=== PATIENT | female | born 1970 | race Caucasian/White ===

== ENCOUNTER → 2016-09-03 | Outpatient (REF) | payer BC, OTHER ==
[~2016-09-03] MED LIST: ATEN25TA PO; COUM7.5T PO; TYLE650T30 PO; birth control pill PO
[2016-09-03 16:39] LABS: ALBUMIN 3.5 GM/DL (3.2-5.2); ALBUMIN/GLOBULIN RATIO 1.09 (1.00-1.93); ALKALINE PHOSPHATASE 176 U/L (45-117); ALT/SGPT 36 U/L (12-78); ANION GAP 11 MEQ/L (8-16); AST/SGOT 20 U/L (15-37); BILIRUBIN,TOTAL 0.3 MG/DL (0.2-1.0); BLOOD UREA NITROGEN 12 MG/DL (7-18); CALCIUM LEVEL 8.5 MG/DL (8.5-10.1); CARBON DIOXIDE LEVEL 21 MEQ/L (21-32); CHLORIDE LEVEL 108 MEQ/L (98-107); CHOLESTEROL LEVEL 221 MG/DL (<200); CREATININE FOR GFR 0.72 MG/DL (0.55-1.02); GLOMERULAR FILTRATION RATE > 60.0 (>58); GLUCOSE, FASTING 145 MG/DL (70-105); SODIUM LEVEL 140 MEQ/L (136-145); TOTAL PROTEIN 6.7 GM/DL (6.4-8.2); TRIGLYCERIDES LEVEL 181 MG/DL (<150)
== END ==
LOC: M SFHCPLAZ 14:35
PROVIDERS: ATTEND Internal Medicine Infectious Disease
DX: B20 Human immunodeficiency virus [HIV] disease (principal); E78.00 Pure hypercholesterolemia, unspecified

== ENCOUNTER → 2016-12-02 | Outpatient (REF) | payer BC, OTHER | LOC: M SFHCWAGY 11:12 | PROVIDERS: ATTEND Nurse Practitioner Women's Health | DX: Z12.4 Encounter for screening for malignant neoplasm of cervix (principal) ==

== ENCOUNTER → 2016-12-02 | Outpatient (CLI) | payer BC, OTHER ==
--- NOTE | 2016-12-02 12:36 | REPMRS ---
Patient History The patient states she had a clinical breast exam in 11/2016. No known family history of cancer. Benign ultrasound-guided FNA biopsy of the left breast, September 27, 2008. Digital Woman Screen Mammo: December 02, 2016 - Exam #: [id number] Bilateral CC and MLO view(s) were taken. Technologist: Radha Moore, Technologist Prior study comparison: April 17, 2015, bilateral digital mammo screening bilat, performed at [facility]. December 13, 2012, digital woman screen mammo performed at [facility]. FINDINGS: There are scattered fibroglandular densities. There is a fairly symmetric fibroglandular pattern in both breasts. There has been no interval development of masses, areas of architectural distortion or clusters of microcalcifications typical of malignancy. ASSESSMENT: BI-RADS/ACR category 2 mammogram. Benign finding(s). Recommendation Routine screening mammogram of both breasts in 1 year (for women over age 40). This mammogram was interpreted with the aid of an FDA-approved computer-aided dectection system. Electronically Signed By: Craig Rose MD 12/02/16 [id number]
== END ==
LOC: M WHC 11:27
PROVIDERS: ATTEND Nurse Practitioner Women's Health
DX: Z12.31 Encounter for screening mammogram for malignant neoplasm of breast (principal); R92.8 Other abnormal and inconclusive findings on diagnostic imaging of breast

== ENCOUNTER → 2017-02-25 | Outpatient (REF) | payer BC, OTHER ==
[2017-02-25 13:40] LABS: ALBUMIN 3.5 GM/DL (3.2-5.2); ALBUMIN/GLOBULIN RATIO 1.09 (1.00-1.93); ALKALINE PHOSPHATASE 161 U/L (45-117); ALT/SGPT 35 U/L (12-78); ANION GAP 7 MEQ/L (8-16); AST/SGOT 19 U/L (15-37); BILIRUBIN,TOTAL 0.2 MG/DL (0.2-1.0); BLOOD UREA NITROGEN 12 MG/DL (7-18); CALCIUM LEVEL 8.9 MG/DL (8.5-10.1); CARBON DIOXIDE LEVEL 27 MEQ/L (21-32); CHLORIDE LEVEL 104 MEQ/L (98-107); CREATININE FOR GFR 0.76 MG/DL (0.55-1.02); GLOMERULAR FILTRATION RATE > 60.0 (>58); GLUCOSE, FASTING 164 MG/DL (70-105); POTASSIUM SERUM 4.6 MEQ/L (3.5-5.1); SODIUM LEVEL 138 MEQ/L (136-145); TOTAL PROTEIN 6.7 GM/DL (6.4-8.2)
[2017-02-26 14:16] LABS: Eosinophils 1 % (Not Estab.); HCT 42.3 % (34.0-46.6); HGB 14.5 g/dL (11.1-15.9); Monocytes 11 % (Not Estab.); Neutrophils 62 % (Not Estab.); WBC 4.5 x10E3/uL (3.4-10.8)
== END ==
LOC: M SFHCPLAZ 10:13
PROVIDERS: ATTEND Internal Medicine Infectious Disease
DX: B20 Human immunodeficiency virus [HIV] disease (principal)

== ENCOUNTER → 2017-06-30 | Outpatient (CLI) | payer BC | LOC: M RAD 14:11 | DX: M25.511 Pain in right shoulder (principal); M50.31 Other cervical disc degeneration, high cervical region | CPT/HCPCS: 72040 ==

== ENCOUNTER → 2017-08-26 | Outpatient (REF) | payer BC, OTHER ==
[2017-08-26 13:58] LABS: ALBUMIN 3.7 GM/DL (3.2-5.2); ALBUMIN/GLOBULIN RATIO 1.06 (1.00-1.93); ALKALINE PHOSPHATASE 148 U/L (45-117); ALT/SGPT 35 U/L (12-78); ANION GAP 11 MEQ/L (8-16); AST/SGOT 18 U/L (7-37); BILIRUBIN,TOTAL 0.4 MG/DL (0.2-1.0); BLOOD UREA NITROGEN 11 MG/DL (7-18); CALCIUM LEVEL 9.1 MG/DL (8.5-10.1); CARBON DIOXIDE LEVEL 25 MEQ/L (21-32); CHLORIDE LEVEL 104 MEQ/L (98-107); CHOLESTEROL LEVEL 234 MG/DL (<200); CHOLESTEROL RISK RATIO 4.333 (<5); CREATININE FOR GFR 0.82 MG/DL (0.55-1.30); GAMMA GLUTAMYLTRANSPEPTIDASE 246 U/L (5-55); GLOMERULAR FILTRATION RATE > 60.0 (>58); GLUCOSE, FASTING 212 MG/DL (70-100); HDL CHOLESTEROL 54 MG/DL (>40); LDL CHOLESTEROL 125.8 MG/DL (<100); NON-HDL-C 180 MG/DL; POTASSIUM SERUM 4.3 MEQ/L (3.5-5.1); SODIUM LEVEL 140 MEQ/L (136-145); TOTAL PROTEIN 7.2 GM/DL (6.4-8.2); TRIGLYCERIDES LEVEL 271 MG/DL (<150)
[2017-08-26 14:47] LABS: ESTIMATED AVERAGE GLUCOSE 229 MG/DL (60-110); HEMOGLOBIN A1c 9.6 %
[2017-08-26 15:52] LABS: APPEARANCE, URINE CLOUDY (CLEAR); BACTERIA, URINE AUTO 1+ (NEGATIVE); BILIRUBIN, URINE AUTO NEGATIVE (NEGATIVE); BLOOD, URINE BLOOD NEGATIVE (NEGATIVE); COLOR, URINE AMBER (YELLOW); GLUCOSE, URINE (UA) AUTO 3+ mg/dL (NEGATIVE); KETONE, URINE AUTO TRACE mg/dL (NEGATIVE); LEUKOCYTE ESTERASE, URINE AUTO TRACE (NEGATIVE); MUCUS, URINE LARGE (NEGATIVE); NITRITE, URINE AUTO NEGATIVE (NEGATIVE); PROTEIN, URINE AUTO 1+ mg/dL (NEGATIVE); RBC, URINE AUTO 1 /HPF (0-3); SPECIFIC GRAVITY URINE AUTO 1.037 (1.002-1.035); SQUAMOUS EPITHELIAL CELL UR AU 15 /HPF (0-6); UROBILINOGEN, URINE AUTO 0.2 mg/dL (0.0-2.0); WBC, URINE AUTO 3 /HPF (0-3); YEAST LIKE CELL URINE AUTO SMALL
[2017-08-26 17:37] LABS: CHLAMYDIA DNA AMPLIFICATION NEGATIVE (NEGATIVE); GC DNA AMPLIFICATION NEGATIVE (NEGATIVE)
[2017-08-27 14:19] LABS: % CD8 Pos Lymph 24.7 % (12.0-35.5); %CD4 Pos Lymphs 36.5 % (30.8-58.5); ABS Lymphs 1.6 x10E3/uL (0.7-3.1); ABS Monocytes 0.4 x10E3/uL (0.1-0.9); ABS Neutophils 3.9 x10E3/uL (1.4-7.0); Abs CD4 Helper 584 /uL (359-1519); Abs CD8 Suppres 395 /uL (109-897); CD4/CD8 Ratio 1.48 (0.92-3.72); Eosinophils 1 % (Not Estab.); HCT 44.3 % (34.0-46.6); HGB 15.6 g/dL (11.1-15.9); Immature Grans 0 % (Not Estab.); Lymphocytes 27 % (Not Estab.); MCH 33.5 pg (26.6-33.0); MCHC 35.2 g/dL (31.5-35.7); MCV 95 fL (79-97); Monocytes 7 % (Not Estab.); Neutrophils 65 % (Not Estab.); Platelets 256 x10E3/uL (150-379); RBC 4.65 x10E6/uL (3.77-5.28); RDW 13.2 % (12.3-15.4); WBC 5.9 x10E3/uL (3.4-10.8)
[2017-08-28 14:09] LABS: QUANTIFERON GOLD TB Negative (Negative); TB Test (QFT) Antigen 0.05 IU/mL (.); TB Test (QFT) Antigen Minus Ni <0.01 IU/mL (.); TB Test (QFT) Mitogen >10.00 IU/mL (.); TB Test (QFT) Nil 0.06 IU/mL (.)
[2017-08-30 14:12] LABS: HIV-1 RNA PCR QUANT 2 LC550285 <20 copies/mL (.)
== END ==
LOC: M SFHCPLAZ 11:52
DX: B20 Human immunodeficiency virus [HIV] disease (principal); E78.00 Pure hypercholesterolemia, unspecified; K76.89 Other specified diseases of liver; E66.01 Morbid (severe) obesity due to excess calories; R30.0 Dysuria
CPT/HCPCS: 82977

== ENCOUNTER → 2017-12-03 | Outpatient (REF) | payer BC | LOC: M SFHCWAGY 11:12 | DX: Z12.4 Encounter for screening for malignant neoplasm of cervix (principal) ==

== ENCOUNTER → 2017-12-03 | Outpatient (CLI) | payer BC, OTHER | LOC: M WHC 11:17 | DX: Z12.31 Encounter for screening mammogram for malignant neoplasm of breast (principal); Z12.4 Encounter for screening for malignant neoplasm of cervix | CPT/HCPCS: G0123 ==

== ENCOUNTER → 2018-03-01 | Outpatient (REF) | payer BC ==
[2018-03-01 22:12] LABS: ALBUMIN 3.7 GM/DL (3.2-5.2); ALBUMIN/GLOBULIN RATIO 1.09 (1.00-1.93); ALKALINE PHOSPHATASE 135 U/L (45-117); ALT/SGPT 33 U/L (12-78); ANION GAP 9 MEQ/L (8-16); AST/SGOT 17 U/L (7-37); BILIRUBIN,TOTAL 0.4 MG/DL (0.2-1.0); BLOOD UREA NITROGEN 13 MG/DL (7-18); CALCIUM LEVEL 8.8 MG/DL (8.5-10.1); CARBON DIOXIDE LEVEL 26 MEQ/L (21-32); CHLORIDE LEVEL 102 MEQ/L (98-107); CREATININE FOR GFR 0.78 MG/DL (0.55-1.30); FERRITIN 65 NG/ML (8-252); GAMMA GLUTAMYLTRANSPEPTIDASE 126 U/L (5-55); GLOMERULAR FILTRATION RATE > 60.0 (>58); GLUCOSE, FASTING 157 MG/DL (70-100); IRON (FE) 101 UG/DL (50-170); POTASSIUM SERUM 4.3 MEQ/L (3.5-5.1); SODIUM LEVEL 137 MEQ/L (136-145); TOTAL IRON BINDING CAPACITY 306 UG/DL (250-450); TOTAL PROTEIN 7.1 GM/DL (6.4-8.2)
[2018-03-01 22:21] LABS: MALB URINE SIEMENS 9.8 MG/L
[2018-03-01 22:27] LABS: MAU/CREAT RATIO 6.3 MCG/MG (0.0-30.0)
[2018-03-01 23:34] LABS: ESTIMATED AVERAGE GLUCOSE 192 MG/DL (60-110); HEMOGLOBIN A1c 8.3 %
[2018-03-04 00:07] LABS: % CD8 Pos Lymph 24.1 % (12.0-35.5); %CD4 Pos Lymphs 37.1 % (30.8-58.5); ABS Eosinophils 0.1 x10E3/uL (0.0-0.4); ABS Lymphs 1.3 x10E3/uL (0.7-3.1); ABS Monocytes 0.4 x10E3/uL (0.1-0.9); ABS Neutophils 3.2 x10E3/uL (1.4-7.0); ANA (HEP2) Negative (.); ANTI-MITOCHONDRIAL ANTIBODY 2.6 Units (0.0-20.0); ANTI-SMOOTH MUSCLE ANTIBODY 5 Units (0-19); Abs CD4 Helper 482 /uL (359-1519); Abs CD8 Suppres 313 /uL (109-897); CD4/CD8 Ratio 1.54 (0.92-3.72); CERULOPLASMIN 35.1 mg/dL (19.0-39.0); Eosinophils 1 % (Not Estab.); HCT 41.1 % (34.0-46.6); HIV-1 RNA PCR QUANT 2 LC550285 <20 copies/mL (.); Immature Grans 0 % (Not Estab.); Lymphocytes 25 % (Not Estab.); MCH 32.4 pg (26.6-33.0); MCHC 34.1 g/dL (31.5-35.7); MCV 95 fL (79-97); Monocytes 8 % (Not Estab.); Neutrophils 66 % (Not Estab.); Platelets 236 x10E3/uL (150-379); RBC 4.32 x10E6/uL (3.77-5.28); RDW 12.9 % (12.3-15.4); TISSUE TRANSGLUTAMINASE IgG <2 U/mL (0-5); UNITSIGA FOR GLIADIN IGA 7 units (0-19); UNITSIGG FOR GLIADIN IGG 6 units (0-19)
== END ==
LOC: M SFHCPLAZ 11:33
DX: B20 Human immunodeficiency virus [HIV] disease (principal); K76.89 Other specified diseases of liver; E11.9 Type 2 diabetes mellitus without complications
CPT/HCPCS: 82977

== ENCOUNTER → 2018-03-23 | Outpatient (CLI) | payer BC | LOC: M RAD 09:08 | DX: K76.0 Fatty (change of) liver, not elsewhere classified (principal) | CPT/HCPCS: 76705 ==

== ENCOUNTER → 2018-06-06 | Outpatient (REF) | payer BC ==
[2018-06-06 13:32] LABS: AMORPHOUS SEDIMENT MODERATE (NEGATIVE); APPEARANCE, URINE HAZY (CLEAR); BACTERIA, URINE AUTO NEGATIVE (NEGATIVE); BILIRUBIN, URINE AUTO NEGATIVE (NEGATIVE); BLOOD, URINE BLOOD NEGATIVE (NEGATIVE); COLOR, URINE YELLOW (YELLOW); GLUCOSE, URINE (UA) AUTO NEGATIVE (NEGATIVE); KETONE, URINE AUTO NEGATIVE (NEGATIVE); LEUKOCYTE ESTERASE, URINE AUTO NEGATIVE (NEGATIVE); MUCUS, URINE MODERATE (NEGATIVE); NITRITE, URINE AUTO NEGATIVE (NEGATIVE); PROTEIN, URINE AUTO NEGATIVE (NEGATIVE); RBC, URINE AUTO 1 /HPF (0-3); SPECIFIC GRAVITY URINE AUTO 1.023 (1.002-1.035); SQUAMOUS EPITHELIAL CELL UR AU 2 /HPF (0-6); UROBILINOGEN, URINE AUTO 0.2 mg/dL (0.0-2.0); WBC, URINE AUTO 1 /HPF (0-3)
[2018-06-06 13:40] LABS: ALBUMIN 3.8 GM/DL (3.2-5.2); ALT/SGPT 24 U/L (12-78); BILIRUBIN,TOTAL 0.5 MG/DL (0.2-1.0); BLOOD UREA NITROGEN 10 MG/DL (7-18); CALCIUM LEVEL 9.2 MG/DL (8.5-10.1); CARBON DIOXIDE LEVEL 23 MEQ/L (21-32); CHLORIDE LEVEL 103 MEQ/L (98-107); CREATININE FOR GFR 0.78 MG/DL (0.55-1.30); GLOMERULAR FILTRATION RATE > 60.0 (>58); GLUCOSE, FASTING 144 MG/DL (70-100); HEMOGLOBIN A1c 8.2 %; POTASSIUM SERUM 4.5 MEQ/L (3.5-5.1); SODIUM LEVEL 137 MEQ/L (136-145); TOTAL PROTEIN 7.1 GM/DL (6.4-8.2)
[2018-06-06 14:11] LABS: MALB URINE SIEMENS 24.9 MG/L; MAU/CREAT RATIO 11.3 MCG/MG (0.0-30.0)
[2018-06-06 15:22] LABS: CHLAMYDIA DNA AMPLIFICATION NEGATIVE (NEGATIVE); GC DNA AMPLIFICATION NEGATIVE (NEGATIVE)
[2018-06-08 14:53] LABS: % CD8 Pos Lymph 22.7 % (12.0-35.5); %CD4 Pos Lymphs 35.6 % (30.8-58.5); ABS Eosinophils 0.1 x10E3/uL (0.0-0.4); ABS Lymphs 1.4 x10E3/uL (0.7-3.1); ABS Monocytes 0.4 x10E3/uL (0.1-0.9); ABS Neutophils 3.3 x10E3/uL (1.4-7.0); Abs CD4 Helper 498 /uL (359-1519); Abs CD8 Suppres 318 /uL (109-897); CD4/CD8 Ratio 1.57 (0.92-3.72); Eosinophils 1 % (Not Estab.); HCT 41.5 % (34.0-46.6); HGB 14.6 g/dL (11.1-15.9); Immature Grans 1 % (Not Estab.); Lymphocytes 27 % (Not Estab.); MCH 33.7 pg (26.6-33.0); MCHC 35.2 g/dL (31.5-35.7); MCV 96 fL (79-97); Monocytes 8 % (Not Estab.); Neutrophils 63 % (Not Estab.); Platelets 280 x10E3/uL (150-379); RBC 4.33 x10E6/uL (3.77-5.28); RDW 13.1 % (12.3-15.4); WBC 5.2 x10E3/uL (3.4-10.8)
[2018-06-09 00:09] LABS: HIV-1 RNA PCR QUANT 2 LC550285 <20 copies/mL (.)
== END ==
LOC: M SFHCPLAZ 11:27
PROVIDERS: ATTEND Internal Medicine Infectious Disease
DX: B20 Human immunodeficiency virus [HIV] disease (principal); E11.9 Type 2 diabetes mellitus without complications

== ENCOUNTER → 2018-10-06 | Outpatient (REF) | payer BC ==
[2018-10-06 16:06] LABS: ALBUMIN 3.7 GM/DL (3.2-5.2); ALT/SGPT 31 U/L (12-78); BILIRUBIN,TOTAL 0.2 MG/DL (0.2-1.0); BLOOD UREA NITROGEN 9 MG/DL (7-18); CALCIUM LEVEL 9.2 MG/DL (8.5-10.1); CARBON DIOXIDE LEVEL 28 MEQ/L (21-32); CHLORIDE LEVEL 104 MEQ/L (98-107); CREATININE FOR GFR 0.78 MG/DL (0.55-1.30); GLOMERULAR FILTRATION RATE > 60.0 (>58); GLUCOSE, FASTING 154 MG/DL (70-100); POTASSIUM SERUM 4.2 MEQ/L (3.5-5.1); SODIUM LEVEL 138 MEQ/L (136-145); TOTAL PROTEIN 7.3 GM/DL (6.4-8.2)
[2018-10-06 16:51] LABS: HEMOGLOBIN A1c 7.1 %
[2018-10-11 00:07] LABS: % CD8 Pos Lymph 25.7 % (12.0-35.5); %CD4 Pos Lymphs 38.5 % (30.8-58.5); ABS Monocytes 0.4 x10E3/uL (0.1-0.9); Abs CD4 Helper 770 /uL (359-1519); Abs CD8 Suppres 514 /uL (109-897); Eosinophils 1 % (Not Estab.); HCT 40.7 % (34.0-46.6); HGB 13.6 g/dL (11.1-15.9); HIV-1 RNA PCR QUANT 2 LC550285 <20 copies/mL (.); Immature Grans 0 % (Not Estab.); Lymphocytes 31 % (Not Estab.); MCH 33.6 pg (26.6-33.0); MCHC 33.4 g/dL (31.5-35.7); MCV 101 fL (79-97); Monocytes 6 % (Not Estab.); Neutrophils 62 % (Not Estab.); Platelets 250 x10E3/uL (150-450); RBC 4.05 x10E6/uL (3.77-5.28); RDW 13.6 % (12.3-15.4); WBC 6.5 x10E3/uL (3.4-10.8)
== END ==
LOC: M SFHCPLAZ 14:07
PROVIDERS: ATTEND Internal Medicine Infectious Disease
DX: B20 Human immunodeficiency virus [HIV] disease (principal); K21.9 Gastro-esophageal reflux disease without esophagitis; E11.9 Type 2 diabetes mellitus without complications

== ENCOUNTER → 2018-11-02 | Outpatient (CLI) | payer BC ==
--- NOTE | 2018-11-03 20:40 | SLEEPHOME ---
DATE OF PROCEDURE: 11/02/2018 ORDERED BY: Dr. Evans Diagnostic home sleep testing was performed due to concern for the obstructive sleep apnea syndrome in this patient with a history of fatigue and sleep fragmentation. For testing, a nocturnal T3 respiratory monitoring device was used. Continuous record was made of pulse, oxygen saturation, airflow, chest, abdominal strain and body position. 9 hours and 59 minutes of data were reviewed. There were 7 hours and 58 minutes marked as time in bed. During the interval marked time in bed there were 41 respiratory events identified of 10 seconds in duration or greater for a respiratory event index of 5.1. The events were primarily obstructive. Baseline pulse rate 70 beats per minute, pulse rate ranged 51 to 116. Baseline saturation was 94%. Saturations fell to 86%. Testing was performed in both the supine and nonsupine positions. IMPRESSION Abnormal home sleep testing with repetitive respiratory events and oxygen desaturations to 86% with a respiratory event index of 5.1 is consistent with the obstructive sleep apnea syndrome. RECOMMENDATIONS The respiratory events seen were associated with the supine posture and sleep position retraining for avoidance of the supine posture would seem appropriate. Should sleep symptoms persists referral for formal sleep evaluation could be considered.
== END ==
LOC: M SLEEP HO 12:00
PROVIDERS: ATTEND Internal Medicine Infectious Disease
DX: R53.83 Other fatigue (principal); E66.9 Obesity, unspecified

== ENCOUNTER → 2018-11-30 | Outpatient (REF) | payer BC | LOC: M SFHCWAGY 09:35 | PROVIDERS: ATTEND Nurse Practitioner Women's Health | DX: Z12.4 Encounter for screening for malignant neoplasm of cervix (principal) ==

== ENCOUNTER → 2018-12-07 | Outpatient (CLI) | payer BC ==
--- NOTE | 2018-12-07 09:04 | REP ---
Diagnostic left breast. Spot magnification views: The study is correlated with the recent screening bilateral mammogram dated 11/30/2018. The micro calcific cluster identified in the left breast laterally on the screening mammogram persists on the spot magnification views and is identified to better advantage on the spot magnification views. This finding is considered suspicious. Impression: BIRADS category 4, suspicious finding, micro calcific cluster in the left breast. Stereotactic guided core needle biopsy is recommended. Patient letter [id number]. Electronically Signed by Craig Rob MD 12/07/2018 08:55 A
== END ==
LOC: M RAD 08:32
PROVIDERS: ATTEND Nurse Practitioner Women's Health
DX: R92.0 Mammographic microcalcification found on diagnostic imaging of breast (principal)

== ENCOUNTER → 2019-01-31 | Outpatient (REF) | payer BC ==
[2019-01-31 16:52] LABS: ALBUMIN 3.8 GM/DL (3.2-5.2); ALT/SGPT 41 U/L (12-78); BILIRUBIN,TOTAL 0.3 MG/DL (0.2-1.0); BLOOD UREA NITROGEN 13 MG/DL (7-18); CALCIUM LEVEL 9.1 MG/DL (8.5-10.1); CARBON DIOXIDE LEVEL 25 MEQ/L (21-32); CHLORIDE LEVEL 106 MEQ/L (98-107); CHOLESTEROL LEVEL 196 MG/DL (<200); CREATININE FOR GFR 0.86 MG/DL (0.55-1.30); GLOMERULAR FILTRATION RATE > 60.0 (>58); GLUCOSE, FASTING 175 MG/DL (70-100); HDL CHOLESTEROL 47 MG/DL (>40); LDL CHOLESTEROL 91 MG/DL (<100); NON-HDL-C 149 MG/DL; POTASSIUM SERUM 4.1 MEQ/L (3.5-5.1); SODIUM LEVEL 140 MEQ/L (136-145); TOTAL PROTEIN 6.9 GM/DL (6.4-8.2); TRIGLYCERIDES LEVEL 288 MG/DL (<150)
[2019-01-31 17:01] LABS: HEMOGLOBIN A1c 7.3 %
[2019-02-04 00:06] LABS: % CD8 Pos Lymph 23.7 % (12.0-35.5); %CD4 Pos Lymphs 43.2 % (30.8-58.5); ABS Lymphs 1.5 x10E3/uL (0.7-3.1); ABS Monocytes 0.4 x10E3/uL (0.1-0.9); ABS Neutophils 3.7 x10E3/uL (1.4-7.0); Abs CD4 Helper 648 /uL (359-1519); Abs CD8 Suppres 356 /uL (109-897); CD4/CD8 Ratio 1.82 (0.92-3.72); Eosinophils 1 % (Not Estab.); HCT 40.8 % (34.0-46.6); HGB 13.5 g/dL (11.1-15.9); HIV-1 RNA PCR QUANT 2 LC550285 <20 copies/mL (.); Immature Grans 0 % (Not Estab.); Lymphocytes 26 % (Not Estab.); MCH 33.8 pg (26.6-33.0); MCHC 33.1 g/dL (31.5-35.7); MCV 102 fL (79-97); Monocytes 7 % (Not Estab.); Neutrophils 66 % (Not Estab.); Platelets 348 x10E3/uL (150-450); RBC 3.99 x10E6/uL (3.77-5.28); RDW 12.9 % (12.3-15.4); WBC 5.6 x10E3/uL (3.4-10.8)
== END ==
LOC: M SFHCPLAZ 13:10
PROVIDERS: ATTEND Internal Medicine Infectious Disease
DX: B20 Human immunodeficiency virus [HIV] disease (principal); K76.89 Other specified diseases of liver; E78.00 Pure hypercholesterolemia, unspecified; E11.9 Type 2 diabetes mellitus without complications

== ENCOUNTER → 2019-05-29 | Outpatient (REF) | payer BC ==
[2019-05-29 15:33] LABS: APPEARANCE, URINE CLEAR (CLEAR); BACTERIA, URINE AUTO NEGATIVE (NEGATIVE); BILIRUBIN, URINE AUTO NEGATIVE (NEGATIVE); BLOOD, URINE BLOOD NEGATIVE (NEGATIVE); COLOR, URINE YELLOW (YELLOW); GLUCOSE, URINE (UA) AUTO NEGATIVE (NEGATIVE); KETONE, URINE AUTO TRACE mg/dL (NEGATIVE); LEUKOCYTE ESTERASE, URINE AUTO NEGATIVE (NEGATIVE); MUCUS, URINE SMALL (NEGATIVE); NITRITE, URINE AUTO NEGATIVE (NEGATIVE); PROTEIN, URINE AUTO NEGATIVE (NEGATIVE); RBC, URINE AUTO 2 /HPF (0-3); SPECIFIC GRAVITY URINE AUTO 1.021 (1.002-1.035); SQUAMOUS EPITHELIAL CELL UR AU 3 /HPF (0-6); UROBILINOGEN, URINE AUTO 0.2 mg/dL (0.0-2.0); WBC, URINE AUTO 1 /HPF (0-3)
[2019-05-29 15:46] LABS: ALBUMIN 3.8 GM/DL (3.2-5.2); ALT/SGPT 39 U/L (12-78); BILIRUBIN,TOTAL 0.4 MG/DL (0.2-1.0); BLOOD UREA NITROGEN 15 MG/DL (7-18); CARBON DIOXIDE LEVEL 28 MEQ/L (21-32); CHLORIDE LEVEL 105 MEQ/L (98-107); CHOLESTEROL LEVEL 171 MG/DL (<200); CHOLESTEROL RISK RATIO 4.275 (<5); CREATININE FOR GFR 0.98 MG/DL (0.55-1.30); FREE T4 1.05 NG/DL (0.76-1.46); GLOMERULAR FILTRATION RATE > 60.0 (>58); GLUCOSE, FASTING 112 MG/DL (70-100); HDL CHOLESTEROL 40 MG/DL (>40); LDL CHOLESTEROL 107 MG/DL (<100); NON-HDL-C 131 MG/DL; POTASSIUM SERUM 4.6 MEQ/L (3.5-5.1); SODIUM LEVEL 140 MEQ/L (136-145); TOTAL PROTEIN 6.8 GM/DL (6.4-8.2); TRIGLYCERIDES LEVEL 120 MG/DL (<150)
[2019-05-29 15:50] LABS: HEMOGLOBIN A1c 8.4 %
[2019-05-29 16:04] LABS: MALB URINE SIEMENS 49.5 MG/L; MAU/CREAT RATIO 32.1 MCG/MG (0.0-30.0)
[2019-05-29 17:35] LABS: CHLAMYDIA DNA AMPLIFICATION NEGATIVE (NEGATIVE); GC DNA AMPLIFICATION NEGATIVE (NEGATIVE)
== END ==
LOC: M SFHCPLAZ 13:21
PROVIDERS: ATTEND Internal Medicine Infectious Disease
DX: B20 Human immunodeficiency virus [HIV] disease (principal); E78.00 Pure hypercholesterolemia, unspecified; E11.9 Type 2 diabetes mellitus without complications; K76.89 Other specified diseases of liver; K59.01 Slow transit constipation

== ENCOUNTER 2019-07-24 06:55 | Day surgery (SDC) | payer BC ==
[~2019-07-24] VITALS: Ht 160 cm; Wt 95.6 kg
[~2019-07-24 06:55] MED LIST changes: +BIKT1TAB PO; +CYCL10TA PO; +GABA-843 PO; +IBUP1TAB6 PO; +JANU50TA8 PO; +LIPI20TA PO; +LOSA50TA88 PO; +NS 1,000 ML IV ONE; +PANT40TA3 PO; +PROAAER10 INH; +SING10TA32 PO
[2019-07-24] MEDS ORDERED: propofoL 200 MG/20 ML VIAL As Ordered ONE ×2 (08:01→08:33)
[2019-07-24 08:40] VITALS: BP 158/76
--- NOTE | 2019-07-24 09:14 | ROOR ---
Patient Name: Mindy Lou Procedure Date: 07/24/2019 8:00 AM Date of : 1970 Age: 49 Room: [facility] Gender: Female Note Status: Finalized Procedure: Colonoscopy Indications: Screening for colorectal malignant neoplasm, Incidental - Change in bowel habits, Incidental - Constipation Providers: Braeden Slaughter MD Referring MD: Javon MOSCOSO MD. Requesting Provider: Medicines: Monitored Anesthesia Care Complications: No immediate complications. Procedure: Pre-Anesthesia Assessment: - Prior to the procedure, a History and Physical was performed, and patient medications and allergies were reviewed. The patient is competent. The risks and benefits of the procedure and the sedation options and risks were discussed with the patient. All questions were answered and informed consent was obtained. Patient identification and proposed procedure were verified by the physician, the nurse and the anesthesiologist in the procedure room. Mental Status Examination: alert and oriented. Airway Examination: normal oropharyngeal airway and neck mobility. Respiratory Examination: clear to auscultation. CV Examination: normal. Prophylactic Antibiotics: The patient does not require prophylactic antibiotics. Prior Anticoagulants: The patient has taken no previous anticoagulant or antiplatelet agents. ASA Grade Assessment: II - A patient with mild systemic disease. After reviewing the risks and benefits, the patient was deemed in satisfactory condition to undergo the procedure. The anesthesia plan was to use monitored anesthesia care (MAC). Immediately prior to administration of medications, the patient was re-assessed for adequacy to receive sedatives. The heart rate, respiratory rate, oxygen saturations, blood pressure, adequacy of pulmonary ventilation, and response to care were monitored throughout the procedure. The physical status of the patient was re-assessed after the procedure. The Colonoscope was introduced through the anus and advanced to the terminal ileum, with identification of the appendiceal orifice and IC valve. The colonoscopy was performed without difficulty. The patient tolerated the procedure well. The quality of the bowel preparation was good. The terminal ileum, ileocecal valve, appendiceal orifice, and rectum were photographed. Scope insertion time was 3 minutes. Scope withdrawal time was 9 minutes. The total duration of the procedure was 14 minutes. Findings: The perianal and digital rectal examinations were normal. The terminal ileum appeared normal. Normal mucosa was found in the entire colon. Non-bleeding external and internal hemorrhoids were found during retroflexion. The hemorrhoids were medium-sized. Impression: - The examined portion of the ileum was normal. - Normal mucosa in the entire examined colon. - Non-bleeding external and internal hemorrhoids. - No specimens collected. Recommendation: - Patient has a contact number available for emergencies. The signs and symptoms of potential delayed complications were discussed with the patient. Return to normal activities tomorrow. Written discharge instructions were provided to the patient. - High fiber diet. - Continue present medications. - Use fiber, for example Citrucel, Fibercon, Konsyl or Metamucil. - Repeat colonoscopy in 10 years for screening purposes. - Return to primary care physician. Braeden Slaughter MD Braeden Slaughter MD 07/24/2019 9:14:21 AM Electronically signed by Braeden Slaughter MD Number of Addenda: 0 Note Initiated On: 07/24/2019 8:00 AM Estimated Blood Loss: Estimated blood loss was minimal.
== END 2019-07-24 09:25 | disposition home or self-care (01) ==
LOC: M OPP 06:55
PROVIDERS: ATTEND Internal Medicine Gastroenterology
DX: Z12.11 Encounter for screening for malignant neoplasm of colon (principal); K64.8 Other hemorrhoids; K59.00 Constipation, unspecified; B20 Human immunodeficiency virus [HIV] disease; E11.9 Type 2 diabetes mellitus without complications; G57.30 Lesion of lateral popliteal nerve, unspecified lower limb; Z79.899 Other long term (current) drug therapy

== ENCOUNTER → 2019-09-18 | Outpatient (REF) | payer BC ==
[~2019-09-18] MED LIST changes: +CYCL-707 PO; -CYCL10TA PO; -NS 1,000 ML IV ONE
[2019-09-18 15:38] LABS: HEMOGLOBIN A1c 7.4 %
[2019-09-18 15:48] LABS: CREATININE, URINE 79.3 MG/DL; MALB URINE SIEMENS 6.4 MG/L
== END ==
LOC: M SFHCPLAZ 13:20
PROVIDERS: ATTEND Internal Medicine Infectious Disease
DX: E11.9 Type 2 diabetes mellitus without complications (principal)

== ENCOUNTER → 2019-12-07 | Outpatient (REF) | payer BC ==
[~2019-12-07] MED LIST changes: +PANT40TA29 PO; -PANT40TA3 PO
== END ==
LOC: M SFHCWAGY 08:44
PROVIDERS: ATTEND Nurse Practitioner Women's Health
DX: Z12.4 Encounter for screening for malignant neoplasm of cervix (principal)

== ENCOUNTER → 2019-12-19 | Outpatient (REF) | payer BC ==
[2020-01-29 08:26] LABS: Abs CD4 Helper See Separate Report; HIV-1 RNA PCR QUANT 2 LC550285 SEE SEPARATE REPORT (NORMAL)
[2020-02-02 11:20] LABS: HEMOGLOBIN A1c 7.2 %
[2020-02-02 11:21] LABS: ALBUMIN 3.8 GM/DL (3.2-5.2); ALT/SGPT 37 U/L (12-78); BILIRUBIN,TOTAL 0.3 MG/DL (0.2-1.0); BLOOD UREA NITROGEN 18 MG/DL (7-18); CALCIUM LEVEL 8.5 MG/DL (8.5-10.1); CARBON DIOXIDE LEVEL 25 MEQ/L (21-32); CHLORIDE LEVEL 109 MEQ/L (98-107); CHOLESTEROL LEVEL 191 MG/DL (<200); CHOLESTEROL RISK RATIO 4.152 (<5); CREATININE FOR GFR 0.91 MG/DL (0.55-1.30); GLOMERULAR FILTRATION RATE > 60.0 (>58); GLUCOSE, FASTING 174 MG/DL (70-100); HDL CHOLESTEROL 46 MG/DL (>40); LDL CHOLESTEROL 115 MG/DL (<100); NON-HDL-C 145 MG/DL; POTASSIUM SERUM 4.6 MEQ/L (3.5-5.1); SODIUM LEVEL 140 MEQ/L (136-145); TOTAL PROTEIN 6.9 GM/DL (6.4-8.2); TRIGLYCERIDES LEVEL 150 MG/DL (<150)
== END ==
LOC: M SFHCPLAZ 10:35
PROVIDERS: ATTEND Internal Medicine Infectious Disease
DX: B20 Human immunodeficiency virus [HIV] disease (principal); E11.9 Type 2 diabetes mellitus without complications; M50.30 Other cervical disc degeneration, unspecified cervical region

== ENCOUNTER → 2020-01-23 | Outpatient (CLI) | payer BC ==
--- NOTE | 2020-01-29 06:33 | SLEEPCENT ---
DATE: 01/23/2020 STUDY: Nocturnal polysomnography. ORDERING PROVIDER: MELINDA Peters. FINDINGS: Nocturnal polysomnography was performed for evaluation of sleep physiology in this patient with a history of extensive somnolence. Eight hours and three minutes of data were reviewed. There were 381 minutes of sleep identified. Sleep latency was prolonged at 84 minutes. REM latency was normal at 61 minutes. Sleep architecture was fair with four REM cycles. Overall sleep efficiency was 80%. The electrocardiogram showed a sinus rhythm with an average heart rate of 60 beats per minute. Unifocal ventricular ectopic beats were identified. EEG showed normal waveforms for wake and sleep. There were 57 respiratory events identified of 10 seconds in duration or greater for an apnea/hypopnea index of 9. The events were primarily obstructive, not exclusive to sleep stage or body posture. Arousals from respiratory events were 1.9 times per hour and oxygen desaturations were seen below 90%. IMPRESSION: Obstructive sleep apnea syndrome (G47.33); apnea/hypopnea index of 9.0. RECOMMENDATION: The patient should be encouraged to return to [facility] for [facility]. In the interim, alcohol and sedative avoidance should be practiced and caution exercised during the operation of motor vehicles. DOMINGA
== END ==
LOC: M SLEEP 20:00
PROVIDERS: ATTEND Nurse Practitioner Family
DX: G47.33 Obstructive sleep apnea (adult) (pediatric) (principal)

== ENCOUNTER → 2020-04-11 | Outpatient (REF) | payer BC ==
[2020-04-11 18:54] LABS: ALBUMIN 3.7 GM/DL (3.2-5.2); ALT/SGPT 31 U/L (12-78); BILIRUBIN,TOTAL 0.2 MG/DL (0.2-1.0); BLOOD UREA NITROGEN 14 MG/DL (7-18); CARBON DIOXIDE LEVEL 24 MEQ/L (21-32); CHLORIDE LEVEL 110 MEQ/L (98-107); CREATININE FOR GFR 0.84 MG/DL (0.55-1.30); GLOMERULAR FILTRATION RATE > 60.0 (>58); GLUCOSE, FASTING 154 MG/DL (70-100); POTASSIUM SERUM 4.8 MEQ/L (3.5-5.1); SODIUM LEVEL 139 MEQ/L (136-145); TOTAL PROTEIN 6.8 GM/DL (6.4-8.2)
[2020-04-11 20:47] LABS: HEMOGLOBIN A1c 7.2 %
[2020-04-14 11:08] LABS: % CD8 Pos Lymph 26.3 % (12.0-35.5); ABS Lymphs 1.4 x10E3/uL (0.7-3.1); ABS Monocytes 0.4 x10E3/uL (0.1-0.9); ABS Neutophils 5.3 x10E3/uL (1.4-7.0); Abs CD4 Helper 518 /uL (359-1519); Abs CD8 Suppres 368 /uL (109-897); CD4/CD8 Ratio 1.41 (0.92-3.72); Eosinophils 1 % (Not Estab.); HCT 40.6 % (34.0-46.6); HIV-1 RNA PCR QUANT 2 LC550285 <20 copies/mL (.); Immature Grans 0 % (Not Estab.); Lymphocytes 19 % (Not Estab.); MCH 34.1 pg (26.6-33.0); MCHC 34.5 g/dL (31.5-35.7); MCV 99 fL (79-97); Monocytes 6 % (Not Estab.); Neutrophils 74 % (Not Estab.); Platelets 296 x10E3/uL (150-450); RDW 11.6 % (11.7-15.4); WBC 7.1 x10E3/uL (3.4-10.8)
== END ==
LOC: M SFHCPLAZ 12:04
PROVIDERS: ATTEND Internal Medicine Infectious Disease
DX: B20 Human immunodeficiency virus [HIV] disease (principal); E11.9 Type 2 diabetes mellitus without complications

== ENCOUNTER → 2020-07-18 | Outpatient (CLI) | payer BC ==
[~2020-07-18] MED LIST changes: +GABA-282 PO; -GABA-843 PO
--- NOTE | 2020-07-18 10:15 | REP ---
INDICATION: RENAL ARTERY STENOSIS. COMPARISON: None. TECHNIQUE: Real-time sonographic evaluation of the kidneys is performed. Duplex Doppler evaluation of renal arteries performed bilaterally. FINDINGS: Renal cortical echogenicity pattern is normal bilaterally and contours are smooth. There is no evidence of hydronephrosis, cyst, mass, or calculus in either kidney. The right kidney measures 10.3 x 5.2 x 4.3 cm. Left renal dimensions are 9.2 x 4.8 x 4.7 cm. The urinary bladder is unremarkable. The peak systolic velocity of the abdominal aorta is 92 centimeters/second. Cyst The peak systolic velocity of the main right renal artery is 149 centimeter/second. Renal to aortic ratio is 1.62. Resistive indices right kidney range between 0.73 and 0.78. Acceleration times range between 0.032 and 0.038. The peak systolic velocity of the main left renal artery is 132 centimeter/seconds. Renal to aortic ratio is 1.43. Resistive indices left kidney range between 0.67 and 0.74. Acceleration times range between 0.040 and 0.042. IMPRESSION: Negative renal ultrasound. No compelling duplex Doppler sonographic evidence of significant renal artery stenosis bilaterally. <Electronically signed by Craig Rose > 07/18/20 [id number]
== END ==
LOC: M RAD 08:49
PROVIDERS: ATTEND Nurse Practitioner Family
DX: I70.1 Atherosclerosis of renal artery (principal)

== ENCOUNTER → 2020-09-03 | Outpatient (CLI) | payer BC ==
--- NOTE | 2020-09-03 16:25 | REP ---
INDICATION: PAIN COMPARISON: None. TECHNIQUE: Four views left elbow. FINDINGS: There is no evidence of acute fracture, dislocation, or intrinsic bone disease.The joint spaces are maintained. I see no radiographic evidence of a joint effusion. IMPRESSION: Negative left elbow series. <Electronically signed by Craig Rose > 09/03/20 [id number]
== END ==
LOC: M WUC 15:14
PROVIDERS: ATTEND Physician Assistant
DX: M25.522 Pain in left elbow (principal)

== ENCOUNTER → 2020-10-14 | Outpatient (REF) | payer BC ==
[2020-10-14 13:33] LABS: BASO % 0.5 % (0.0-1.0); EOS # 0.1 10^3/uL (0.0-0.5); EOS % 1.2 % (0.0-3.0); HEMATOCRIT 38.1 % (36.0-47.0); HEMOGLOBIN 13.1 g/dl (12.0-15.5); LYMPH # 1.4 10^3/uL (1.5-5.0); MEAN CORPUSCULAR HEMOGLOBIN 34.2 pg (27.0-33.0); MEAN CORPUSCULAR HGB CONC 34.4 g/dl (32.0-36.5); MEAN CORPUSCULAR VOLUME 99.5 fl (80.0-96.0); MONO # 0.4 10^3/uL (0.0-0.8); MONO % 7.3 % (2.0-8.0); NEUTROPHILS % 67.3 % (36.0-66.0); PLATELET COUNT, AUTOMATED 330 10^3/uL (150-450); RED BLOOD COUNT 3.83 10^6/uL (4.00-5.40); WHITE BLOOD COUNT 5.9 10^3/uL (4.0-10.0)
[2020-10-14 14:11] LABS: ALBUMIN 3.6 GM/DL (3.2-5.2); ALT/SGPT 26 U/L (12-78); BILIRUBIN,TOTAL 0.3 MG/DL (0.2-1.0); BLOOD UREA NITROGEN 17 MG/DL (7-18); CARBON DIOXIDE LEVEL 24 MEQ/L (21-32); CHLORIDE LEVEL 113 MEQ/L (98-107); CHOLESTEROL LEVEL 151 MG/DL (<200); CHOLESTEROL RISK RATIO 3.511 (<5); CREATININE FOR GFR 0.89 MG/DL (0.55-1.30); FREE T4 1.04 NG/DL (0.76-1.46); GLOMERULAR FILTRATION RATE > 60.0 (>58); GLUCOSE, FASTING 124 MG/DL (70-100); HDL CHOLESTEROL 43 MG/DL (>40); LDL CHOLESTEROL 81 MG/DL (<100); MAGNESIUM LEVEL 1.6 MG/DL (1.8-2.4); NON-HDL-C 108 MG/DL; POTASSIUM SERUM 4.9 MEQ/L (3.5-5.1); SODIUM LEVEL 143 MEQ/L (136-145); TOTAL PROTEIN 6.6 GM/DL (6.4-8.2); TRIGLYCERIDES LEVEL 137 MG/DL (<150)
[2020-10-14 14:14] LABS: MAU/CREAT RATIO 4.7 MCG/MG (0.0-30.0)
[2020-10-14 15:02] LABS: HEMOGLOBIN A1c 7.1 %
== END ==
LOC: M PLALAB 11:29
PROVIDERS: ATTEND Nurse Practitioner Family
DX: I10 Essential (primary) hypertension (principal); E11.9 Type 2 diabetes mellitus without complications; E78.00 Pure hypercholesterolemia, unspecified

== ENCOUNTER → 2021-04-14 | Outpatient (CLI) | payer BC ==
[2021-04-14 13:52] LABS: ALBUMIN 3.4 GM/DL (3.2-5.2); BILIRUBIN,TOTAL 0.4 MG/DL (0.2-1.0); CALCIUM LEVEL 9.3 MG/DL (8.5-10.1); CHOLESTEROL RISK RATIO 3.96 (<5); CREATININE FOR GFR 1.1 MG/DL (0.55-1.30); GLOMERULAR FILTRATION RATE 56.4 (>58); TOTAL PROTEIN 6.7 GM/DL (6.4-8.2)
[2021-04-14 14:17] LABS: HEMOGLOBIN A1c 7.3 %
[2021-04-15 16:10] LABS: % CD8 Pos Lymph 23.6 % (12.0-35.5); %CD4 Pos Lymphs 38.2 % (30.8-58.5); ABS Eosinophils 0.1 x10E3/uL (0.0-0.4); ABS Lymphs 1.2 x10E3/uL (0.7-3.1); ABS Monocytes 0.4 x10E3/uL (0.1-0.9); ABS Neutophils 4.3 x10E3/uL (1.4-7.0); Abs CD4 Helper 458 /uL (359-1519); Abs CD8 Suppres 283 /uL (109-897); CD4/CD8 Ratio 1.62 (0.92-3.72); Eosinophils 1 % (Not Estab.); HCT 38.4 % (34.0-46.6); HGB 13.8 g/dL (11.1-15.9); HIV-1 RNA PCR QUANT 2 LC550285 <20 copies/mL (.); Immature Grans 1 % (Not Estab.); Lymphocytes 20 % (Not Estab.); MCH 34.2 pg (26.6-33.0); MCHC 35.9 g/dL (31.5-35.7); MCV 95 fL (79-97); Monocytes 7 % (Not Estab.); Neutrophils 71 % (Not Estab.); Platelets 250 x10E3/uL (150-450); RBC 4.03 x10E6/uL (3.77-5.28); RDW 12.2 % (11.7-15.4); WBC 6.1 x10E3/uL (3.4-10.8)
== END ==
LOC: M PLALAB 10:34
PROVIDERS: ATTEND Internal Medicine Infectious Disease
DX: B20 Human immunodeficiency virus [HIV] disease (principal); E78.00 Pure hypercholesterolemia, unspecified; E11.9 Type 2 diabetes mellitus without complications

== ENCOUNTER → 2021-05-22 | Outpatient (REF) | payer BC ==
[~2021-05-22] MED LIST changes: +LOSA50TA28 PO; -LOSA50TA88 PO
== END ==
LOC: M SFHCWAGY 17:34
PROVIDERS: ATTEND Nurse Practitioner Women's Health
DX: Z12.4 Encounter for screening for malignant neoplasm of cervix (principal)
CPT/HCPCS: 87624; G0123

== ENCOUNTER → 2021-05-30 | Outpatient (CLI) | payer BC | LOC: M WHC 09:54 | PROVIDERS: ATTEND Physician Assistant | DX: R92.8 Other abnormal and inconclusive findings on diagnostic imaging of breast (principal); N63.10 Unspecified lump in the right breast, unspecified quadrant; N63.20 Unspecified lump in the left breast, unspecified quadrant | CPT/HCPCS: 76642; 77066; G0279 ==

== ENCOUNTER → 2021-10-24 | Outpatient (CLI) | payer BC ==
[2021-10-24 12:19] LABS: BASO % 0.7 % (0.0-1.0); EOS # 0.2 10^3/uL (0.0-0.5); HEMATOCRIT 38.3 % (36.0-47.0); HEMOGLOBIN 13.7 g/dl (12.0-15.5); LYMPH # 1.5 10^3/uL (1.5-5.0); LYMPH % 26.8 % (24.0-44.0); MEAN CORPUSCULAR HEMOGLOBIN 34.3 pg (27.0-33.0); MEAN CORPUSCULAR HGB CONC 35.8 g/dl (32.0-36.5); MEAN CORPUSCULAR VOLUME 95.8 fl (80.0-96.0); MONO # 0.5 10^3/uL (0.0-0.8); MONO % 8.5 % (2.0-8.0); NEUTROPHILS # 3.4 10^3/uL (1.5-8.5); NEUTROPHILS % 60.3 % (36.0-66.0); PLATELET COUNT, AUTOMATED 243 10^3/uL (150-450); WHITE BLOOD COUNT 5.6 10^3/uL (4.0-10.0)
[2021-10-24 12:37] LABS: HEMOGLOBIN A1c 7.6 %
[2021-10-24 12:56] LABS: ALBUMIN 3.6 GM/DL (3.2-5.2); ALT/SGPT 30 U/L (12-78); BILIRUBIN,TOTAL 0.5 MG/DL (0.2-1.0); BLOOD UREA NITROGEN 15 MG/DL (7-18); CARBON DIOXIDE LEVEL 23 MEQ/L (21-32); CHLORIDE LEVEL 106 MEQ/L (98-107); CHOLESTEROL LEVEL 198 MG/DL (<200); CHOLESTEROL RISK RATIO 4.212 (<5); CREATININE FOR GFR 0.97 MG/DL (0.55-1.30); GLOMERULAR FILTRATION RATE > 60.0 (>58); GLUCOSE, FASTING 184 MG/DL (70-100); HDL CHOLESTEROL 47 MG/DL (>40); LDL CHOLESTEROL 115 MG/DL (<100); NON-HDL-C 151 MG/DL; POTASSIUM SERUM 4.4 MEQ/L (3.5-5.1); SODIUM LEVEL 137 MEQ/L (136-145); TOTAL PROTEIN 6.9 GM/DL (6.4-8.2); TRIGLYCERIDES LEVEL 178 MG/DL (<150)
[2021-10-24 13:03] LABS: MALB URINE SIEMENS < 5.0 MG/L; MAU/CREAT RATIO 10.4 MCG/MG (0.0-30.0)
== END ==
LOC: M WUC 10:32
PROVIDERS: ATTEND Nurse Practitioner Family
DX: E11.9 Type 2 diabetes mellitus without complications (principal); I10 Essential (primary) hypertension; E78.00 Pure hypercholesterolemia, unspecified

== ENCOUNTER → 2021-10-24 | Outpatient (CLI) | payer BC ==
[2021-10-27 09:07] LABS: % CD8 Pos Lymph 21.8 % (12.0-35.5); %CD4 Pos Lymphs 41.6 % (30.8-58.5); ABS Eosinophils 0.2 x10E3/uL (0.0-0.4); ABS Lymphs 1.4 x10E3/uL (0.7-3.1); ABS Monocytes 0.5 x10E3/uL (0.1-0.9); ABS Neutophils 3.3 x10E3/uL (1.4-7.0); Abs CD4 Helper 582 /uL (359-1519); Abs CD8 Suppres 305 /uL (109-897); CD4/CD8 Ratio 1.91 (0.92-3.72); Eosinophils 4 % (Not Estab.); HCT 38.7 % (34.0-46.6); HGB 13.7 g/dL (11.1-15.9); HIV-1 RNA PCR QUANT 2 LC550285 <20 copies/mL (.); Immature Grans 1 % (Not Estab.); Lymphocytes 27 % (Not Estab.); MCH 33.7 pg (26.6-33.0); MCHC 35.4 g/dL (31.5-35.7); MCV 95 fL (79-97); Monocytes 9 % (Not Estab.); Neutrophils 58 % (Not Estab.); Platelets 260 x10E3/uL (150-450); RBC 4.06 x10E6/uL (3.77-5.28); RDW 12.4 % (11.7-15.4); WBC 5.4 x10E3/uL (3.4-10.8)
== END ==
LOC: M WUC 10:29
PROVIDERS: ATTEND Internal Medicine Infectious Disease
DX: B20 Human immunodeficiency virus [HIV] disease (principal)

== ENCOUNTER → 2022-04-28 | Outpatient (CLI) | payer BC ==
[2022-04-28 15:45] LABS: GC DNA AMPLIFICATION NEGATIVE (NEGATIVE)
[2022-04-29 15:08] LABS: % CD8 Pos Lymph 24.3 % (12.0-35.5); %CD4 Pos Lymphs 41.6 % (30.8-58.5); ABS Eosinophils 0.1 x10E3/uL (0.0-0.4); ABS Lymphs 1.2 x10E3/uL (0.7-3.1); ABS Monocytes 0.4 x10E3/uL (0.1-0.9); ABS Neutophils 3.5 x10E3/uL (1.4-7.0); Abs CD4 Helper 499 /uL (359-1519); Abs CD8 Suppres 292 /uL (109-897); CD4/CD8 Ratio 1.71 (0.92-3.72); Eosinophils 1 % (Not Estab.); HCT 38.4 % (34.0-46.6); HGB 13.5 g/dL (11.1-15.9); HIV-1 RNA PCR QUANT 2 LC550285 <20 copies/mL (.); Imm ABS Grans 0.1 x10E3/uL (0.0-0.1); Immature Grans 1 % (Not Estab.); Lymphocytes 22 % (Not Estab.); MCH 33.8 pg (26.6-33.0); MCHC 35.2 g/dL (31.5-35.7); MCV 96 fL (79-97); Monocytes 8 % (Not Estab.); Neutrophils 68 % (Not Estab.); Platelets 233 x10E3/uL (150-450); RBC 3.99 x10E6/uL (3.77-5.28); RDW 12.1 % (11.7-15.4); WBC 5.2 x10E3/uL (3.4-10.8)
== END ==
LOC: M PLALAB 10:25
PROVIDERS: ATTEND Internal Medicine Infectious Disease
DX: B20 Human immunodeficiency virus [HIV] disease (principal)

== ENCOUNTER → 2022-04-28 | Outpatient (CLI) | payer BC ==
[2022-04-28 14:54] LABS: HEMOGLOBIN A1c 8.8 % (4.0-6.0)
[2022-04-28 15:06] LABS: ALBUMIN 3.6 G/DL (3.2-5.2); ALKALINE PHOSPHATASE 121 U/L (46-116); ALT/SGPT 28 U/L (7.0-40); AST/SGOT 19 U/L (<34); BILIRUBIN,TOTAL 0.4 MG/DL (0.3-1.2); BLOOD UREA NITROGEN 19 MG/DL (9-23); CALCIUM LEVEL 8.8 MG/DL (8.5-10.1); CARBON DIOXIDE LEVEL 24 MMOL/L (20-31); CHLORIDE LEVEL 106 MMOL/L (98-107); CHOLESTEROL LEVEL 186 MG/DL (<200); CHOLESTEROL RISK RATIO 3.99 (<5); CREATININE FOR GFR 0.97 MG/DL (0.55-1.30); CREATININE, URINE 143.1 MG/DL; GLOMERULAR FILTRATION RATE > 60.0 (>51); GLUCOSE, FASTING 256 MG/DL (60-100); HDL CHOLESTEROL 46.6 MG/DL (>40); LDL CHOLESTEROL 103.6 MG/DL (<100); MALB URINE SIEMENS < 3.0 MG/DL; NON-HDL-C 139 MG/DL; POTASSIUM SERUM 4.7 MMOL/L (3.5-5.1); SODIUM LEVEL 139 MMOL/L (136-145); TOTAL PROTEIN 6.4 G/DL (5.7-8.2); TRIGLYCERIDES LEVEL 179 MG/DL (<150)
== END ==
LOC: M PLALAB 10:22
PROVIDERS: ATTEND Nurse Practitioner Family
DX: E11.9 Type 2 diabetes mellitus without complications (principal); E78.00 Pure hypercholesterolemia, unspecified

== ENCOUNTER → 2022-10-27 | Outpatient (CLI) | payer BC ==
[~2022-10-27] MED LIST changes: +MONT-5 PO; -SING10TA32 PO
[2022-10-27 14:56] LABS: BILIRUBIN,TOTAL 0.7 MG/DL (0.3-1.2); CALCIUM LEVEL 9.4 MG/DL (8.5-10.1); CHOLESTEROL RISK RATIO 4.4 (<5); CREATININE FOR GFR 1.24 MG/DL (0.55-1.30); GLOMERULAR FILTRATION RATE 48.7 (>51); HDL CHOLESTEROL 43.4 MG/DL (>40); LDL CHOLESTEROL 122.2 MG/DL (<100); NON-HDL-C 147.6 MG/DL; POTASSIUM SERUM 4.9 MMOL/L (3.5-5.1); TOTAL PROTEIN 6.8 G/DL (5.7-8.2)
[2022-10-27 14:59] LABS: HEMOGLOBIN A1c 7.1 % (4.0-6.0)
[2022-10-29 04:07] LABS: % CD8 Pos Lymph 23.2 % (12.0-35.5); ABS Eosinophils 0.1 x10E3/uL (0.0-0.4); ABS Lymphs 1.4 x10E3/uL (0.7-3.1); ABS Monocytes 0.5 x10E3/uL (0.1-0.9); ABS Neutophils 4.1 x10E3/uL (1.4-7.0); Abs CD4 Helper 588 /uL (359-1519); Abs CD8 Suppres 325 /uL (109-897); CD4/CD8 Ratio 1.81 (0.92-3.72); Eosinophils 1 % (Not Estab.); HGB 15.4 g/dL (11.1-15.9); HIV-1 RNA PCR QUANT 2 LC550285 <20 copies/mL (.); Immature Grans 1 % (Not Estab.); Lymphocytes 24 % (Not Estab.); MCV 94 fL (79-97); Monocytes 7 % (Not Estab.); Neutrophils 66 % (Not Estab.); Platelets 243 x10E3/uL (150-450); RBC 4.66 x10E6/uL (3.77-5.28); RDW 12.4 % (11.7-15.4); WBC 6.1 x10E3/uL (3.4-10.8)
== END ==
LOC: M PLALAB 10:25
PROVIDERS: ATTEND Internal Medicine Infectious Disease
DX: E78.00 Pure hypercholesterolemia, unspecified (principal); E11.9 Type 2 diabetes mellitus without complications; B20 Human immunodeficiency virus [HIV] disease

== ENCOUNTER → 2022-11-24 | Outpatient (CLI) | payer BC | LOC: M WHC 09:34 | PROVIDERS: ATTEND Nurse Practitioner Family | DX: Z12.31 Encounter for screening mammogram for malignant neoplasm of breast (principal) ==

== ENCOUNTER → 2023-06-05 | Outpatient (CLI) | payer BC ==
[2023-06-05 09:48] LABS: BASO % 0.5 % (0.0-1.0); EOS # 0.1 10^3/uL (0.0-0.5); EOS % 0.9 % (0.0-3.0); HEMATOCRIT 40.3 % (36.0-47.0); HEMOGLOBIN 13.8 g/dl (12.0-15.5); LYMPH # 1.1 10^3/uL (1.5-5.0); LYMPH % 17.5 % (24.0-44.0); MEAN CORPUSCULAR HEMOGLOBIN 33.6 pg (27.0-33.0); MEAN CORPUSCULAR HGB CONC 34.2 g/dl (32.0-36.5); MEAN CORPUSCULAR VOLUME 98.1 fl (80.0-96.0); MONO # 0.5 10^3/uL (0.0-0.8); MONO % 8.3 % (2.0-8.0); NEUTROPHILS # 4.7 10^3/uL (1.5-8.5); NEUTROPHILS % 72.5 % (36.0-66.0); PLATELET COUNT, AUTOMATED 222 10^3/uL (150-450); RED BLOOD COUNT 4.11 10^6/uL (4.00-5.40); WHITE BLOOD COUNT 6.5 10^3/uL (4.0-10.0)
[2023-06-05 10:10] LABS: CREATININE, URINE 134.7 MG/DL
[2023-06-05 10:11] LABS: MAU/CREAT RATIO 4.4 MCG/MG (0.0-30.0)
[2023-06-05 10:12] LABS: ALBUMIN 3.7 G/DL (3.2-5.2); ALKALINE PHOSPHATASE 144 U/L (46-116); ALT/SGPT 26 U/L (7.0-40); AST/SGOT 14 U/L (<34); BILIRUBIN,TOTAL 0.6 MG/DL (0.3-1.2); BLOOD UREA NITROGEN 17 MG/DL (9-23); CALCIUM LEVEL 9.1 MG/DL (8.5-10.1); CARBON DIOXIDE LEVEL 27 MMOL/L (20-31); CHLORIDE LEVEL 107 MMOL/L (98-107); CHOLESTEROL LEVEL 179 MG/DL (<200); CREATININE FOR GFR 0.95 MG/DL (0.55-1.30); GLOMERULAR FILTRATION RATE > 60.0 (>51); GLUCOSE, FASTING 150 MG/DL (60-100); HDL CHOLESTEROL 38.9 MG/DL (>40); LDL CHOLESTEROL 110.9 MG/DL (<100); NON-HDL-C 140.1 MG/DL; POTASSIUM SERUM 4.5 MMOL/L (3.5-5.1); SODIUM LEVEL 140 MMOL/L (136-145); TOTAL PROTEIN 6.7 G/DL (5.7-8.2); TRIGLYCERIDES LEVEL 146 MG/DL (<150)
[2023-06-05 10:13] LABS: THYROID STIMULATING HORMONE 1.463 uIU/ML (0.55-4.78)
[2023-06-05 10:14] LABS: FREE T4 1.09 NG/DL (0.89-1.76)
[2023-06-05 10:18] LABS: HEMOGLOBIN A1c 6.5 % (4.0-6.0)
== END ==
LOC: M LAB 09:14
PROVIDERS: ATTEND Nurse Practitioner Family
DX: E11.9 Type 2 diabetes mellitus without complications (principal); I10 Essential (primary) hypertension; E78.00 Pure hypercholesterolemia, unspecified

== ENCOUNTER → 2023-10-19 | Outpatient (CLI) | payer BC ==
[2023-10-19 18:32] LABS: BASO % 0.3 % (0.0-1.0); EOS # 0.1 10^3/uL (0.0-0.5); EOS % 0.7 % (0.0-3.0); HEMATOCRIT 39.9 % (36.0-47.0); HEMOGLOBIN 13.7 g/dl (12.0-15.5); LYMPH # 1.7 10^3/uL (1.5-5.0); LYMPH % 25.7 % (24.0-44.0); MEAN CORPUSCULAR HEMOGLOBIN 33.8 pg (27.0-33.0); MEAN CORPUSCULAR HGB CONC 34.3 g/dl (32.0-36.5); MEAN CORPUSCULAR VOLUME 98.5 fl (80.0-96.0); MONO # 0.5 10^3/uL (0.0-0.8); NEUTROPHILS # 4.4 10^3/uL (1.5-8.5); NEUTROPHILS % 65.9 % (36.0-66.0); PLATELET COUNT, AUTOMATED 290 10^3/uL (150-450); RED BLOOD COUNT 4.05 10^6/uL (4.00-5.40); WHITE BLOOD COUNT 6.7 10^3/uL (4.0-10.0)
[2023-10-19 18:57] LABS: CREATININE, URINE 87.8 MG/DL; MAU/CREAT RATIO 5.6 MCG/MG (0.0-30.0)
[2023-10-19 18:59] LABS: ALBUMIN 3.7 G/DL (3.2-5.2); ALKALINE PHOSPHATASE 156 U/L (46-116); ALT/SGPT 33 U/L (7.0-40); AST/SGOT 16 U/L (<34); BILIRUBIN,TOTAL 0.3 MG/DL (0.3-1.2); BLOOD UREA NITROGEN 17 MG/DL (9-23); CALCIUM LEVEL 9.6 MG/DL (8.5-10.1); CARBON DIOXIDE LEVEL 30 MMOL/L (20-31); CHLORIDE LEVEL 107 MMOL/L (98-107); CHOLESTEROL LEVEL 190 MG/DL (<200); CHOLESTEROL RISK RATIO 4.78 (<5); CREATININE FOR GFR 0.99 MG/DL (0.55-1.30); GLOMERULAR FILTRATION RATE > 60.0 (>51); GLUCOSE, FASTING 150 MG/DL (60-100); HDL CHOLESTEROL 39.7 MG/DL (>40); LDL CHOLESTEROL 90.3 MG/DL (<100); NON-HDL-C 150.3 MG/DL; POTASSIUM SERUM 4.5 MMOL/L (3.5-5.1); SODIUM LEVEL 140 MMOL/L (136-145); TOTAL PROTEIN 6.8 G/DL (5.7-8.2); TRIGLYCERIDES LEVEL 300 MG/DL (<150)
[2023-10-19 19:01] LABS: TOTAL 25(OH) VITAMIN D 32.7 NG/ML (20.0-100.0)
[2023-10-19 19:06] LABS: HEMOGLOBIN A1c 6.6 % (4.0-6.0)
== END ==
LOC: M PLALAB 15:35
PROVIDERS: ATTEND Nurse Practitioner Family
DX: I10 Essential (primary) hypertension (principal); E11.9 Type 2 diabetes mellitus without complications; E78.00 Pure hypercholesterolemia, unspecified; E55.9 Vitamin D deficiency, unspecified

== ENCOUNTER → 2024-03-07 | Outpatient (REF) | payer BC ==
[~2024-03-07] MED LIST changes: +GABA-1172 PO; -GABA-282 PO
[2024-03-09 15:48] LABS: HPV APTIMA Not Detected (Not Detected)
== END ==
LOC: M SFHCWAGY 14:54
PROVIDERS: ATTEND Nurse Practitioner Family
DX: Z12.4 Encounter for screening for malignant neoplasm of cervix (principal); Z11.51 Encounter for screening for human papillomavirus (HPV)

== ENCOUNTER → 2024-03-07 | Outpatient (CLI) | payer BC | LOC: M WHC 10:42 | PROVIDERS: ATTEND Nurse Practitioner Family | DX: Z12.31 Encounter for screening mammogram for malignant neoplasm of breast (principal); R92.323 Mammographic fibroglandular density, bilateral breasts ==

== ENCOUNTER → 2024-03-14 | Outpatient (CLI) | payer BC ==
[2024-03-14 13:31] LABS: ALBUMIN 3.6 G/DL (3.2-5.2); BILIRUBIN,TOTAL 0.5 MG/DL (0.3-1.2); CALCIUM LEVEL 9.9 MG/DL (8.5-10.1); CHOLESTEROL RISK RATIO 4.27 (<5); CREATININE FOR GFR 1.16 MG/DL (0.55-1.30); GLOMERULAR FILTRATION RATE 52.4 (>51); HDL CHOLESTEROL 50.8 MG/DL (>40); LDL CHOLESTEROL 142.8 MG/DL (<100); NON-HDL-C 166.2 MG/DL; POTASSIUM SERUM 4.6 MMOL/L (3.5-5.1); TOTAL PROTEIN 7.1 G/DL (5.7-8.2)
[2024-03-14 14:01] LABS: HEMOGLOBIN A1c 8.1 % (4.0-6.0)
[2024-03-15 11:11] LABS: % CD4+ LYMPHS 44.2 % (30.8-58.5); ABSOLUTE CD4 HELPER 663 /uL (359-1519); BASOPHILS 0 % (Not Estab.); EOSINOPHILS 1 % (Not Estab.); LYMPHOCYTES 23 % (Not Estab.); LYMPHOCYTES ABSOLUTE 1.5 x10E3/uL (0.7-3.1); MCH 33.2 pg (26.6-33.0); MCHC 34.1 g/dL (31.5-35.7); MCV 97 fL (79-97); MONOCYTES 6 % (Not Estab.); MONOCYTES ABSOLUTE 0.4 x10E3/uL (0.1-0.9); NEUTROPHILS 70 % (Not Estab.); NEUTROPHILS ABSOLUTE 4.6 x10E3/uL (1.4-7.0); PLT 276 x10E3/uL (150-450); RBC 4.22 x10E6/uL (3.77-5.28); RDW 12.4 % (11.7-15.4); WBC 6.5 x10E3/uL (3.4-10.8)
[2024-03-16 14:37] LABS: HIV-1 RNA PCR QUANT 2 NOT DETECTED copies/mL (NOT DETECTED); HIV-1 RNA PCR QUANT 3 NOT DETECTED (NOT DETECTED)
== END ==
LOC: M PLALAB 09:45
PROVIDERS: ATTEND Internal Medicine Infectious Disease
DX: B20 Human immunodeficiency virus [HIV] disease (principal); E78.00 Pure hypercholesterolemia, unspecified; R09.89 Other specified symptoms and signs involving the circulatory and respiratory systems; E11.9 Type 2 diabetes mellitus without complications; R10.11 Right upper quadrant pain

== ENCOUNTER → 2024-06-20 | Outpatient (CLI) | payer BC ==
[2024-06-20 11:19] LABS: BASO % 0.4 % (0.0-1.0); EOS # 0.1 10^3/uL (0.0-0.5); EOS % 0.8 % (0.0-3.0); HEMATOCRIT 40.1 % (36.0-47.0); HEMOGLOBIN 13.8 g/dl (12.0-15.5); LYMPH # 1.5 10^3/uL (1.5-5.0); LYMPH % 20.4 % (24.0-44.0); MEAN CORPUSCULAR HEMOGLOBIN 33.6 pg (27.0-33.0); MEAN CORPUSCULAR HGB CONC 34.4 g/dl (32.0-36.5); MEAN CORPUSCULAR VOLUME 97.6 fl (80.0-96.0); MONO # 0.5 10^3/uL (0.0-0.8); MONO % 6.5 % (2.0-8.0); NEUTROPHILS # 5.2 10^3/uL (1.5-8.5); NEUTROPHILS % 71.6 % (36.0-66.0); PLATELET COUNT, AUTOMATED 275 10^3/uL (150-450); RED BLOOD COUNT 4.11 10^6/uL (4.00-5.40); WHITE BLOOD COUNT 7.3 10^3/uL (4.0-10.0)
[2024-06-20 11:46] LABS: HEMOGLOBIN A1c 8.4 % (4.0-6.0)
[2024-06-20 11:59] LABS: ALBUMIN 3.6 G/DL (3.2-5.2); BILIRUBIN,TOTAL 0.5 MG/DL (0.3-1.2); CALCIUM LEVEL 9.9 MG/DL (8.5-10.1); CHOLESTEROL RISK RATIO 4.31 (<5); CREATININE FOR GFR 1.14 MG/DL (0.55-1.30); GLOMERULAR FILTRATION RATE 53.3 (>51); HDL CHOLESTEROL 51.7 MG/DL (>40); LDL CHOLESTEROL 138.1 MG/DL (<100); NON-HDL-C 171.3 MG/DL; POTASSIUM SERUM 4.1 MMOL/L (3.5-5.1)
[2024-06-20 12:28] LABS: CREATININE, URINE 296.9 MG/DL; MAU/CREAT RATIO 7.7 MCG/MG (0.0-30.0)
== END ==
LOC: M PLALAB 08:17
PROVIDERS: ATTEND Nurse Practitioner Family
DX: E78.00 Pure hypercholesterolemia, unspecified (principal); E11.9 Type 2 diabetes mellitus without complications; E55.9 Vitamin D deficiency, unspecified

== ENCOUNTER → 2024-09-26 | Outpatient (CLI) | payer BC ==
[2024-09-26 14:34] LABS: HEMOGLOBIN A1c 9.1 % (4.0-6.0)
[2024-09-26 14:38] LABS: ALBUMIN 3.6 G/DL (3.2-5.2); BILIRUBIN,TOTAL 0.3 MG/DL (0.3-1.2); CALCIUM LEVEL 9.5 MG/DL (8.5-10.1); CHOLESTEROL RISK RATIO 4.33 (<5); CREATININE FOR GFR 1.04 MG/DL (0.55-1.30); GLOMERULAR FILTRATION RATE 64.7 (>51); HDL CHOLESTEROL 47.5 MG/DL (>40); LDL CHOLESTEROL 121.1 MG/DL (<100); NON-HDL-C 158.5 MG/DL; POTASSIUM SERUM 4.3 MMOL/L (3.5-5.1); TOTAL PROTEIN 6.4 G/DL (5.7-8.2)
[2024-09-27 12:16] LABS: HIV-1 RNA PCR QUANT 2 NOT DETECTED copies/mL (NOT DETECTED); HIV-1 RNA PCR QUANT 3 NOT DETECTED (NOT DETECTED)
[2024-09-28 17:08] LABS: % CD4 43 % (30-61); %CD8 24 % (12-42); ABSOLUTE CD4 CELLS 637 cells/uL (490-1740); ABSOLUTE CD8 CELLS 349 cells/uL (180-1170); ABSOLUTE LYMPHOCYTES 1482 cells/uL (850-3900); CD4 CD8 RATIO 1.83 (0.86-5.00)
== END ==
LOC: M PLALAB 09:30
PROVIDERS: ATTEND Internal Medicine Infectious Disease
DX: B20 Human immunodeficiency virus [HIV] disease (principal); E11.9 Type 2 diabetes mellitus without complications; E78.00 Pure hypercholesterolemia, unspecified

== ENCOUNTER → 2025-03-01 | Outpatient (CLI) | payer BC ==
[~2025-03-01] MED LIST changes: -IBUP1TAB6 PO; +SFHIBU600 PO
[2025-03-01 11:40] LABS: BASO # 0.0 10^3/uL (0.0-0.2); BASO % 0.3 % (0.0-1.0); EOS # 0.0 10^3/uL (0.0-0.5); EOS % 0.6 % (0.0-3.0); LYMPH # 1.2 10^3/uL (1.5-5.0); LYMPH % 18.6 % (24.0-44.0); MONO # 0.5 10^3/uL (0.0-0.8); MONO % 6.8 % (2.0-8.0); NEUTROPHILS # 4.9 10^3/uL (1.5-8.5); NEUTROPHILS % 73.2 % (36.0-66.0); PLATELET COUNT, AUTOMATED 267 10^3/uL (150-450)
[2025-03-01 12:13] LABS: CREATININE, URINE 164.0 MG/DL; MALB URINE SIEMENS 28.0 MG/L; MAU/CREAT RATIO 17.0 MCG/MG (0.0-30.0)
[2025-03-01 12:14] LABS: ALT/SGPT 30.0 U/L (7.0-40); AST/SGOT 19.0 U/L (<34); CALCIUM LEVEL 9.8 MG/DL (8.5-10.1); CARBON DIOXIDE LEVEL 28.0 MMOL/L (20-31); CHLORIDE LEVEL 105.0 MMOL/L (98-107); CHOLESTEROL LEVEL 189.0 MG/DL (<200); CHOLESTEROL RISK RATIO 4.3 (<5); CREATININE FOR GFR 1.2 MG/DL (0.55-1.30); GLOMERULAR FILTRATION RATE 54.5 (>51); LDL CHOLESTEROL 115.1 MG/DL (<100); MAGNESIUM LEVEL 1.7 MG/DL (1.8-2.4); NON-HDL-C 145.1 MG/DL; POTASSIUM SERUM 5.1 MMOL/L (3.5-5.1); SODIUM LEVEL 144.0 MMOL/L (136-145); TRIGLYCERIDES LEVEL 150.0 MG/DL (<150)
[2025-03-01 12:15] LABS: ESTIMATED AVERAGE GLUCOSE 177.0 MG/DL (60-110)
== END ==
LOC: M PLALAB 09:15
PROVIDERS: ATTEND Nurse Practitioner Family
DX: E11.9 Type 2 diabetes mellitus without complications (principal); E78.00 Pure hypercholesterolemia, unspecified

== ENCOUNTER → 2025-03-22 | Outpatient (CLI) | payer BC | LOC: M WHC 15:00 | PROVIDERS: ATTEND Nurse Practitioner Family | DX: Z12.31 Encounter for screening mammogram for malignant neoplasm of breast (principal); R92.323 Mammographic fibroglandular density, bilateral breasts ==

== ENCOUNTER → 2025-04-23 | Outpatient (CLI) | payer BC ==
[2025-04-26 01:17] LABS: % CD4 42 % (30-61); %CD8 21 % (12-42); ABSOLUTE CD4 CELLS 630 cells/uL (490-1740); ABSOLUTE CD8 CELLS 319 cells/uL (180-1170); ABSOLUTE LYMPHOCYTES 1487 cells/uL (850-3900); CD4 CD8 RATIO 1.98 (0.86-5.00)
[2025-04-26 14:47] LABS: HIV-1 RNA PCR QUANT 2 NOT DETECTED copies/mL (NOT DETECTED); HIV-1 RNA PCR QUANT 3 NOT DETECTED (NOT DETECTED)
== END ==
LOC: M PLALAB 08:11
PROVIDERS: ATTEND Internal Medicine Infectious Disease
DX: B20 Human immunodeficiency virus [HIV] disease (principal)